=== PATIENT | male | born 1960 ===

== ENCOUNTER 2016-12-11 12:03 | Emergency (ER) | payer BC ==
[2016-12-11] MEDS ORDERED: cefTRIAXone 2 GM in Sodium Chloride 0.9% 100 ML IVPB STA (12:48)
[2016-12-11] MEDS ORDERED: Penicillin G Benzathine 2.4 Mill Unit/4 ml Syr IM ONE ×2 (13:04→13:48)
--- NOTE | 2016-12-11 13:08 | C.PDOC ---
History Of Present Illness A 56 y/o male presents to the ER c/o mildly painful sores on the penis since July this year. Pt notes back in July he was treated for syphilis but the sores did not resolve. Pt reports visiting the same doctor on 12/07 and blood work was done which showed a (+) syphilis test and was given Levaquin. Pt presents requesting for an "injection." Time Seen by Provider: 12/11/16 12:24 Chief Complaint (Nursing): Male Genitourinary History Per: Patient History/Exam Limitations: no limitations Onset/Duration Of Symptoms: Days (Since july) Current Symptoms Are (Timing): Still Present Severity: Mild Reports Recently: Treated By A Physician Recent travel outside of the [place]: No Additional History Per: Patient Past Medical History Reviewed: Historical Data, Nursing Documentation, Vital Signs Vital Signs: Last Vital Signs Temp 98.3 F 12/11/16 14:00 Pulse 62 12/11/16 14:00 Resp 20 12/11/16 14:00 BP 135/87 12/11/16 14:00 Pulse Ox 95 12/11/16 14:00 - Medical History PMH: Anxiety, Bipolar Disorder, HTN, Hyperlipidemia Family History: States: Unknown Family Hx - Social History Hx Alcohol Use: Yes Hx Substance Use: No Review Of Systems Except As Marked, All Systems Reviewed And Found Negative. Constitutional: Negative for: Fever, Chills Respiratory: Negative for: Shortness of Breath Gastrointestinal: Negative for: Nausea, Vomiting Genitourinary: Positive for: Penile Pain (Little pain), Other (Sores on the penis ). Negative for: Dysuria, Frequency, Hematuria Physical Exam - Physical Exam Appears: Non-toxic, No Acute Distress Skin: Warm, Dry Head: Atraumatic, Normacephalic Eye(s): bilateral: Normal Inspection Cardiovascular: Rhythm Regular, No Murmur Respiratory: Normal Breath Sounds, No Rales, No Rhonchi, No Wheezing Male Genital: No Testicular Tenderness, No Testicular Swelling, No Scrotal Swelling, Other (3 sub-cm ulceration to the shaft of the penis) Pulses: Left Femoral: Normal, Right Femoral: Normal Neurological/Psych: Oriented x3, Normal Speech, Normal Cognition, Other (No focal deficit) ED Course And Treatment O2 Sat by Pulse Oximetry: 96 (RA) Pulse Ox Interpretation: Normal Medical Decision Making Medical Decision Making: Disc w ID Dr Petit- initially rec admission for further eval but the pt does not wish to stay- he will sign out AMA. In this case she rec IM Stephani and azithro 500mg daily for 10 days. Disposition - Disposition Referrals: Kenneth To MD [Staff Provider] - Rossana Petit MD [Staff Provider] - Disposition: AGAINST MEDICAL ADVICE Disposition Time: 13:07 Condition: STABLE Additional Instructions: Please follow up with your doctor. Return to the ER for any worsening symptoms or for any other concerns. Prescriptions: Azithromycin [Zithromax] 500 mg PO DAILY #10 tab Forms: Gen Discharge Inst Yakut Print Language: FRENCH - Clinical Impression Clinical Impression: Lesion of penis - Scribe Statement The provider has reviewed the documentation as recorded by the Scribe Agnieszka issa All medical record entries made by the Scribe were at my direction and personally dictated by me. I have reviewed the chart and agree that the record accurately reflects my personal performance of the history, physical exam, medical decision making, and the department course for this patient. I have also personally directed, reviewed, and agree with the discharge instructions and disposition.
[2016-12-11 14:01] VITALS: BP 135/87; PULSE 62; RESP 20; TEMP 98.3
[2016-12-11 17:09] VITALS: O2SAT 96
== END 2016-12-11 14:04 | disposition left against medical advice (07) ==
LOC: C.ER 12:03
DX: N48.89 Other specified disorders of penis (principal)
CPT/HCPCS: 87491; 87591; 96372; 99284; J0561

== ENCOUNTER 2016-12-23 18:29 | Emergency (ER) | payer BC ==
[2016-12-23 18:40] VITALS: BP 157/94; PULSE 71; TEMP 97.6; O2SAT 97
[2016-12-23] MEDS ORDERED: Penicillin G Benzathine 2.4 Mill Unit/4 ml Syr IM ONE (18:41)
--- NOTE | 2016-12-23 19:11 | C.PDOC ---
History Of Present Illness 56 yo male w/Hx of Syphilis was sen to ED by ID for Stephani injection. At present time, pt denies any new active complaints. Ambulate to Ed for evaluation , not in any apparent distress. Time Seen by Provider: 12/23/16 18:38 Chief Complaint (Nursing): Medical Clearance History Per: Patient Past Medical History Reviewed: Historical Data, Nursing Documentation, Vital Signs Vital Signs: Last Vital Signs Temp 97.6 F 12/23/16 19:24 Pulse 71 12/23/16 19:24 Resp 18 12/23/16 19:24 BP 157/94 H 12/23/16 19:24 Pulse Ox 97 12/23/16 19:24 - Medical History PMH: Anxiety, Bipolar Disorder, HTN, Hyperlipidemia Other PMH: Syphilis Family History: States: Unknown Family Hx - Social History Hx Alcohol Use: Yes Hx Substance Use: No - Immunization History Hx Tetanus Toxoid Vaccination: No Hx Influenza Vaccination: No Hx Pneumococcal Vaccination: No Review Of Systems Except As Marked, All Systems Reviewed And Found Negative. Constitutional: Negative for: Fever, Chills ENT: Negative for: Throat Pain Cardiovascular: Negative for: Chest Pain, Palpitations Respiratory: Negative for: Cough, Shortness of Breath Gastrointestinal: Negative for: Nausea, Vomiting Genitourinary: Negative for: Dysuria Musculoskeletal: Negative for: Neck Pain, Back Pain Neurological: Negative for: Weakness, Numbness, Altered Mental Status, Headache , Dizziness Physical Exam - Physical Exam Appears: Well, Non-toxic, No Acute Distress Skin: Normal Color, Warm, No Rash Eye(s): bilateral: PERRL Throat: No Erythema, No Exudate, No Drooling Neck: Supple Cardiovascular: Rhythm Regular Respiratory: No Stridor, No Wheezing Gastrointestinal/Abdominal: Soft, No Tenderness, No Distention, No Guarding Back: No CVA Tenderness Male Genital: Other (refused) Extremity: No Pedal Edema, No Deformity Neurological/Psych: Oriented x3, Normal Speech ED Course And Treatment O2 Sat by Pulse Oximetry: 97 Progress Note: medication given to patient, tolerated well. Pt is afebrile, hemodynamicaly stable. non-toxic. Pt advised and ref. to F/u with ID for further eval and tx. Disposition Counseled Patient/Family Regarding: Diagnosis, Need For Followup - Disposition Referrals: Rossana Petit MD [Staff Provider] - Disposition: HOME/ ROUTINE Disposition Time: 19:11 Condition: STABLE Additional Instructions: Follow up with for further evaluation and treatment. Return to ED if any worsening or new changes. Instructions: Syphilis (ED) - Clinical Impression Clinical Impression: Syphilis
[2016-12-23 19:25] VITALS: RESP 18
== END 2016-12-23 19:24 | disposition home or self-care (01) ==
LOC: C.ER 18:29
DX: A53.9 Syphilis, unspecified (principal)

== ENCOUNTER 2018-01-29 14:14 | Emergency (ER) | payer BC ==
[2018-01-29 14:30] VITALS: BMI 29.5
[2018-01-29 14:34] VITALS: BP 148/79; PULSE 85; RESP 18; TEMP 98.2; O2SAT 97
[2018-01-29] MEDS ORDERED: Bacitracin 500 Units/gm Oint Foilpak UD ONE ×2 (14:50→14:53)
[2018-01-29] MEDS ORDERED: Bacitracin 500 Units/gm Oint Foilpak UD TOP ONE (14:52)
[2018-01-29] MEDS ORDERED: Tdap Vaccine 0.5 ml Vial (10-64 yrs) IM ONE ×2 (14:52→15:01)
--- NOTE | 2018-01-29 15:10 | C.PDOC ---
History Of Present Illness 57 year old male with a history of diabetes presents to the emergency department with complaints of bleeding to his left thumb. Patient reported that he was putting on a bag on a metal garbage can and scratched himself yesterday. Patient reports that the bleeding wouldn't stop so he bandaged it. Patient states he decided to come to the ED due to having work tomorrow and needing a proper bandage. He denies fever, chills, or other injury. Time Seen by Provider: 01/29/18 14:35 Chief Complaint (Nursing): Finger,Hand,&Wrist History Per: Patient History/Exam Limitations: no limitations Onset/Duration Of Symptoms: Days (1) Current Symptoms Are (Timing): Still Present Quality: Other (bleeding) Past Medical History Reviewed: Historical Data, Nursing Documentation, Vital Signs Vital Signs: Last Vital Signs Temp 98.2 F 01/29/18 14:30 Pulse 85 01/29/18 14:30 Resp 18 01/29/18 14:30 BP 148/79 01/29/18 14:30 Pulse Ox 97 01/29/18 15:12 - Medical History PMH: Anxiety, Bipolar Disorder, HTN, Hypercholesterolemia, Hyperlipidemia Surgical History: No Surg Hx Family History: States: No Known Family Hx - Social History Hx Alcohol Use: No Hx Substance Use: No - Immunization History Hx Tetanus Toxoid Vaccination: No Hx Influenza Vaccination: No Hx Pneumococcal Vaccination: No Review Of Systems Except As Marked, All Systems Reviewed And Found Negative. Constitutional: Negative for: Fever, Chills Skin: Positive for: Other (cut on tip of left thumb, bleeding) Physical Exam - Physical Exam Appears: Non-toxic, No Acute Distress Skin: Warm, Dry, Other (abrasions to the puncture wound to the tip of the left thumb, slightly deep and losing blood) Head: Atraumatic, Normacephalic Eye(s): bilateral: Normal Inspection Nose: Normal Neck: Normal, Supple Chest: Symmetrical Extremity: Normal ROM Neurological/Psych: Oriented x3, Normal Speech, Normal Cognition ED Course And Treatment O2 Sat by Pulse Oximetry: 97 (RA) Pulse Ox Interpretation: Normal Medical Decision Making Medical Decision Making: Plan: Adacel 0.5ml IM Bacitracin 2 ea TOP Keflex 1000mg PO Patient washed his hand, and his wound was cleaned and bandaged. Patient was instructed to keep the bandage on for 48 hours. Disposition Counseled Patient/Family Regarding: Diagnosis, Need For Followup - Disposition Referrals: eKvin To MD [Medical Doctor] - Disposition: HOME/ ROUTINE Disposition Time: 15:10 Condition: STABLE Prescriptions: Cephalexin [Keflex] 500 mg PO TID #40 capsule Instructions: Wound Care (DC) Forms: Gen Discharge Inst Brazilian, [facility] (Brazilian), Work Excuse - POA Present On Arrival: None - Clinical Impression Clinical Impression: Puncture wound of right thumb - Scribe Statement The provider has reviewed the documentation as recorded by the Scribe (Tom Marieqvi) Provider Attestation: All medical record entries made by the Scribe were at my direction and personally dictated by me. I have reviewed the chart and agree that the record accurately reflects my personal performance of the history, physical exam, medical decision making, and the department course for this patient. I have also personally directed, reviewed, and agree with the discharge instructions and disposition.
== END 2018-01-29 15:18 | disposition home or self-care (01) ==
LOC: C.ER 14:14
DX: S61.032A Puncture wound without foreign body of left thumb without damage to nail, initial encounter (principal); W22.8XXA Striking against or struck by other objects, initial encounter

== ENCOUNTER 2018-11-06 08:42 | Observation (INO) | payer BC ==
[2018-11-06 08:52] VITALS: BMI 30.2
--- NOTE | 2018-11-06 10:12 | RAD ---
Chest x-ray single frontal view History: Chest pain. Comparison: None available. Findings: Mild venous congestion. Heart size is within normal limits. Impression: Mild venous congestion.
--- NOTE | 2018-11-06 10:53 | C.PDOC ---
History Of Present Illness 58 year old male presents to the ED with complaint of right-sided chest pain for the past 6 hours. Patient describes the pain as pressure-like. Patient reports that he has never had a history of chest pain of cardiac issues in the past. Patient states that he took a baby aspirin this morning, but the pain continued so he came here. He denies fever cough, SOB, numbness, weakness, nausea, and vomiting. Time Seen by Provider: 11/06/18 09:18 Chief Complaint (Nursing): Chest Pain History Per: Patient History/Exam Limitations: no limitations Onset/Duration Of Symptoms: Hrs (6) Current Symptoms Are (Timing): Still Present Severity: Moderate Pain Scale Rating Of: 6 Quality: Pressure Associated Symptoms: denies: Nausea, Dyspnea Modifying Factors: None Exacerbating Factors: None Alleviating Factors: None Recent travel outside of the [place]: No Past Medical History Reviewed: Historical Data, Nursing Documentation, Vital Signs Vital Signs: Last Vital Signs Temp 98.7 F 11/06/18 08:52 Pulse 89 11/06/18 09:01 Resp 18 11/06/18 08:52 BP 156/92 H 11/06/18 09:01 Pulse Ox 95 11/06/18 08:52 - Medical History PMH: Anxiety, Bipolar Disorder, HTN, Hypercholesterolemia, Hyperlipidemia Surgical History: No Surg Hx Family History: States: Unknown Family Hx - Social History Hx Alcohol Use: No Hx Substance Use: No - Immunization History Hx Tetanus Toxoid Vaccination: No Hx Influenza Vaccination: No Hx Pneumococcal Vaccination: No Review Of Systems Constitutional: Negative for: Fever Eyes: Negative for: Pain ENT: Negative for: Ear Pain Cardiovascular: Positive for: Chest Pain (right-sided) Respiratory: Negative for: Cough, Shortness of Breath Gastrointestinal: Negative for: Nausea, Vomiting Genitourinary: Negative for: Dysuria, Frequency Musculoskeletal: Negative for: Neck Pain, Shoulder Pain, Arm Pain, Leg Pain Skin: Negative for: Lesions, Jaundice Neurological: Negative for: Weakness, Numbness Physical Exam - Physical Exam Appears: No Acute Distress, Other (obese male) Skin: Normal Color, Warm, Dry, No Rash Head: Atraumatic, Normacephalic Eye(s): bilateral: Normal Inspection Oral Mucosa: Moist Tongue: Normal Appearing Lips: Normal Appearing Neck: Normal ROM, Supple Chest: Symmetrical, No Deformity, No Tenderness Cardiovascular: Rhythm Regular, No Murmur Respiratory: No Accessory Muscle Use, No Rales, No Rhonchi, No Stridor, No Wheezing Gastrointestinal/Abdominal: Soft, No Tenderness Back: Normal Inspection, No CVA Tenderness Extremity: Normal ROM, No Calf Tenderness, Capillary Refill (<2 seconds), No Swelling Pulses: Left Dorsalis Pedis: Normal, Right Dorsalis Pedis: Normal Neurological/Psych: Oriented x3, Normal Speech, Normal Cognition, Normal Motor, Normal Sensation Gait: Steady ED Course And Treatment - Laboratory Results Result Diagrams: 11/06/18 10:49 11/06/18 10:49 ECG: Interpreted By Me, Viewed By Me ECG Rhythm: Sinus Rhythm ECG Interpretation: Normal Interpretation Of ECG: Normal axis. Normal ST/T waves. Rate From EC O2 Sat by Pulse Oximetry: 95 (on RA) Pulse Ox Interpretation: Normal - Other Rad CXR X-Ray: Interpreted by Me, Viewed By Me Interpretation: Impression: Mild venous congestion. Medical Decision Making Medical Decision Making: Plan: Labs ordered with CMP, CBC, and troponin EKG and CXR ordered for patient Patient given Aspirin Re-eval: Patient is resting, but still has chest pain. Call placed to Dr. Marielle Fuller for admission. Dr. Marielle Fuller agrees to admit patient. Dr. Dean placed for Cardio consult. Disposition - Disposition Disposition: HOSPITALIZED Disposition Time: 12:00 Condition: STABLE - POA Present On Arrival: None - Clinical Impression Clinical Impression: Chest pain - PA / DENTURE PACKER / Resident Statement MD/DO has reviewed & agrees with the documentation as recorded. (Torri Oconnell) - Scribe Statement The provider has reviewed the documentation as recorded by the Scribe (Torri Oconnell) All medical record entries made by the Scribe were at my direction and personally dictated by me. I have reviewed the chart and agree that the record accurately reflects my personal performance of the history, physical exam, medical decision making, and the department course for this patient. I have also personally directed, reviewed, and agree with the discharge instructions and d isposition.
[2018-11-06 10:57] LABS: BASO % 0.6 % (0.0-2.0); EOS # 0.1 K/uL (0.0-0.7); EOS % 1.2 % (0.0-4.0); HEMOGLOBIN 12.9 g/dL (12.0-18.0); LYMPH # 2.1 K/uL (1.0-4.3); LYMPH % 43.7 % (20.0-40.0); MEAN CELL VOLUME 86.5 fL (80.0-94.0); MEAN CORPUSCULAR HEMOGLOBIN 27.6 pg (27.0-31.0); MEAN CORPUSCULAR HGB CONC 31.9 g/dL (33.0-37.0); MONO # 0.5 K/uL (0.0-0.8); MONO % 9.9 % (0.0-10.0); NEUT # 2.1 K/uL (1.8-7.0); NEUT % 44.6 % (50.0-75.0); NRBC % 0.1 % (0.0-2.0); RBC 4.69 Mil/uL (4.40-5.90); RED CELL DISTRIBUTION WIDTH 16.6 % (11.5-14.5); WHITE BLOOD COUNT 4.8 K/uL (4.8-10.8)
[2018-11-06 11:03] LABS: INR 1.1; PROTHROMBIN TIME 11.9 SECONDS (9.7-12.2)
[2018-11-06 11:38] LABS: BLOOD UREA NITROGEN 17 mg/dL (9-20); CALCIUM 9.6 mg/dl (8.6-10.4); GFR NON-AFRICAN AMERICAN > 60
[2018-11-06 11:40] LABS: ALB/GLOB RATIO 1.4 (1.0-2.1); ALBUMIN 4.4 g/dL (3.5-5.0); ALT/SGPT 67 U/L (21-72); AST/SGOT 77 U/L (17-59)
[2018-11-06] MEDS ORDERED: Glucagon Recombinant 1 mg Inj IM PRN (13:32)
[2018-11-06] MEDS ORDERED: Dextrose 50% SYRINGE Inj (50 ml) IV PRN (13:32)
[2018-11-06 17:12] VITALS: RESP 20
--- NOTE | 2018-11-06 17:56 | US ---
Date of service: 11/06/2018 HISTORY: colic COMPARISON: None. TECHNIQUE: Sonographic evaluation of the right upper quadrant of the abdomen. FINDINGS: LIVER: Measures 22.9 cm in length. Patent portal and hepatic venous systems. Hepatopedal blood flow. Fatty infiltration manifest ultrasonographically as increased echogenicity of the liver parenchyma. No mass. No intrahepatic bile duct dilatation. GALLBLADDER: Cholelithiasis. Negative study for gallbladder wall thickening, pericholecystic fluid, sonographic Monroe's sign. COMMON BILE DUCT: Measures 5.6 mm. No stones. No dilatation. PANCREAS: Unremarkable as visualized. No mass. No ductal dilatation. RIGHT KIDNEY: Measures 0.8 x 12.7 cm in length. Normal echogenicity. No calculus, mass, or hydronephrosis. AORTA: No aneurysmal dilatation. IVC: Unremarkable. OTHER FINDINGS: None . IMPRESSION: Cholelithiasis. No sonographic evidence of acute cholecystitis. Hepatomegaly/hepatic steatosis.
[2018-11-06] MEDS ORDERED: METFORMIN HCL PO SCH (18:00)
[2018-11-06] MEDS ORDERED: GLYBURIDE PO SCH (18:00)
[2018-11-06] MEDS: (Novolog) Insulin Aspart, Recombinant 100 u/ml 10 ml vial SC SCH ×2 (18:45→22:24)
--- NOTE | 2018-11-06 19:10 | CP.PCM.HP ---
Past Patient History - Infectious Disease Hx of Infectious Diseases: None - Past Social History Smoking Status: Former Smoker - CARDIAC Hx Hypercholesterolemia: Yes Hx Hypertension: Yes - ENDOCRINE/METABOLIC Hx Endocrine Disorders: Yes Hx Diabetes Mellitus Type 2: Yes - PSYCHIATRIC Hx Anxiety: Yes Hx Bipolar Disorder: Yes Hx Substance Use: No - SURGICAL HISTORY Hx Surgeries: No - ANESTHESIA Hx Anesthesia: No Meds Allergies/Adverse Reactions: Allergies Allergy/AdvReac Type Severity Reaction Status Date / Time No Known Allergies Allergy Verified 11/06/18 08:51 Physical Exam - Constitutional Appears: Well - Head Exam Head Exam: ATRAUMATIC, NORMAL INSPECTION, NORMOCEPHALIC - Eye Exam Eye Exam: EOMI, Normal appearance, PERRL Pupil Exam: NORMAL ACCOMODATION, PERRL - ENT Exam ENT Exam: Mucous Membranes Moist, Normal Exam - Neck Exam Neck exam: Positive for: Normal Inspection - Respiratory Exam Respiratory Exam: Decreased Breath Sounds - Cardiovascular Exam Cardiovascular Exam: REGULAR RHYTHM, +S1, +S2 - GI/Abdominal Exam GI & Abdominal Exam: Diminished Bowel Sounds, Soft - Rectal Exam Rectal Exam: Deferred - Neurological Exam Neurological exam: Oriented x3 Results - Vital Signs Recent Vital Signs: Last Vital Signs Temp 98.0 F 11/06/18 15:25 Pulse 74 11/06/18 15:25 Resp 20 11/06/18 15:25 BP 143/85 11/06/18 15:25 Pulse Ox 95 11/06/18 15:25 - Labs Result Diagrams: 11/06/18 10:49 11/06/18 10:49 Labs: Laboratory Results - last 24 hr 11/06/18 11/06/18 11/06/18 10:49 10:49 10:49 WBC 4.8 RBC 4.69 Hgb 12.9 Hct 40.6 MCV 86.5 MCH 27.6 MCHC 31.9 L RDW 16.6 H Plt Count 209 MPV 10.0 Neut % (Auto) 44.6 L Lymph % (Auto) 43.7 H [place] % (Auto) 9.9 Eos % (Auto) 1.2 Baso % (Auto) 0.6 Neut # (Auto) 2.1 Lymph # (Auto) 2.1 [place] # (Auto) 0.5 Eos # (Auto) 0.1 Baso # (Auto) 0.0 PT 11.9 INR 1.1 APTT 31 D-Dimer, Quantitative Sodium 136 Potassium 4.7 Chloride 102 Carbon Dioxide 23 Anion Gap 17 BUN 17 Creatinine 0.6 L Est GFR ( Amer) > 60 Est GFR (Non-Af Amer) > 60 POC Glucose (mg/dL) Random Glucose 339 H Calcium 9.6 Total Bilirubin 0.5 AST 77 H ALT 67 Alkaline Phosphatase 131 H Troponin I < 0.0120 NT-Pro-B Natriuret Pep 16.0 Total Protein 7.4 Albumin 4.4 Globulin 3.1 Albumin/Globulin Ratio 1.4 11/06/18 11/06/18 11/06/18 16:33 16:33 16:45 WBC RBC Hgb Hct MCV MCH MCHC RDW Plt Count MPV Neut % (Auto) Lymph % (Auto) [place] % (Auto) Eos % (Auto) Baso % (Auto) Neut # (Auto) Lymph # (Auto) [place] # (Auto) Eos # (Auto) Baso # (Auto) PT INR APTT D-Dimer, Quantitative < 200 Sodium Potassium Chloride Carbon Dioxide Anion Gap BUN Creatinine Est GFR ( Amer) Est GFR (Non-Af Amer) POC Glucose (mg/dL) 158 H Random Glucose Calcium Total Bilirubin AST ALT Alkaline Phosphatase Troponin I < 0.0120 NT-Pro-B Natriuret Pep Total Protein Albumin Globulin Albumin/Globulin Ratio Assessment & Plan - Assessment and Plan (Free Text) Plan: gall stone and no simone of cholecystitis on usg gl bld.
[2018-11-06 20:48] LABS: BARBITURATES, UR NEGATIVE (NEGATIVE); BENZODIAZEPINES, UR POSITIVE (NEGATIVE); OPIATES, UR NEGATIVE (NEGATIVE); PHENCYCLIDINE, UR NEGATIVE (NEGATIVE)
--- NOTE | 2018-11-07 01:04 | CON ---
DATE: 11/06/2018 CARDIOLOGY CONSULT REASON FOR CONSULTATION: Right-sided chest pain. HISTORY OF PRESENT ILLNESS: The patient is a 58-year-old male who has history of diabetes mellitus. He is a former smoker. The patient presented here because of right-sided chest pain that lasted some 6 hours. The patient denies any associated nausea or vomiting. The patient is unaware of any prior cardiac history. The patient denies any associated diaphoresis, dizziness, or syncope. SOCIAL HISTORY: The patient is a former smoker. He is occasional drinker. MEDICATIONS: Crestor 20 mg once a day, aspirin 81 mg once a day, metformin 500 mg twice a day, hydrochlorothiazide 12.5 mg once a day, Toprol XL 50 mg once a day, Tricor 145 mg daily, Zestril 20 mg once a day. REVIEW OF SYSTEMS: No fever or chills. No dizziness or syncope. No diaphoresis. PHYSICAL EXAMINATION: GENERAL: The patient is a middle-aged male who does not appear to be in acute distress. VITAL SIGNS: Blood pressure 124/80, heart rate 78, temperature 98.5, respirations 16. HEENT: Normocephalic. CHEST: Clear. HEART: Sounds regular. ABDOMEN: Soft. EXTREMITIES: No edema. LABORATORY DATA: SMA-7, sodium 136, potassium 4.7, chloride of 102, CO2 of 23, glucose 339, BUN 17, creatinine 0.6. One set of troponin is negative. RPR done in 2017 was nonreactive. Today's PT/PTT and INR are within normal limits. Today's hemoglobin and hematocrit 12.9 and 40.6. White count and platelet count are within normal limits. EKG NSR, incomplete RBBB Chest x-ray was unremarkable. ASSESSMENT: 1. Chest pain, rule out myocardial infarction. 2. Uncontrolled diabetes mellitus. 3. Hypertension. The patient initial blood pressure was elevated at 165/94. RECOMMENDATIONS: Continue Crestor 20 mg once a day, aspirin 81 mg once a day, hydrochlorothiazide 12.5 mg once a day, Toprol XL 50 mg once a day, Tricor at 145 mg daily, Zestril 20 mg once a day. Obtain serum D-dimer, urine drug screen. Repeat 12-lead EKG. Obtain an echocardiography study and follow serial troponins. Nico Simms MD [facility]
[2018-11-07] MEDS: (Novolog) Insulin Aspart, Recombinant 100 u/ml 10 ml vial SC SCH ×4 (08:48→21:38)
[2018-11-07] MEDS ORDERED: HYDROCHLOROTHIAZIDE PO SCH (10:00)
[2018-11-07] MEDS ORDERED: FENOFIBRATE MICRONIZED 134 MG PO SCH (10:00)
[2018-11-07] MEDS ORDERED: LISINOPRIL PO SCH (10:00)
[2018-11-07] MEDS ORDERED: Metoprolol Succinate 50 mg XL Tab PO SCH (10:00)
--- NOTE | 2018-11-07 10:07 | CARD ---
APPROVED REPORT Date of service: 11/07/2018 EXAM: Two-dimensional and M-mode echocardiogram with Doppler and color Doppler. INDICATION Chest Pain RISK FACTORS Hypertension Hyperlipidemia Diabetes 2D DIMENSIONS IVSd1.3 (0.7-1.1cm)LVDd5.0 (3.9-5.9cm) PWd1.1 (0.7-1.1cm)LA [id number] (18-58mL) LVDs2.9 (2.5-4.0cm)FS (%) 42.0 % LVEF (%)72.7 (>50%)LVEF (Vill[place]ana's)68.55 % M-Mode DIMENSIONS Left Atrium (MM)4.30 (2.5-4.0cm)IVSd1.16 (0.7-1.1cm) Aortic Root4.11 (2.2-3.7cm)LVDd5.35 (4.0-5.6cm) Aortic Cusp Exc.2.50 (1.5-2.0cm)PWd1.10 (0.7-1.1cm) FS (%) 50 %LVDs2.66 (2.0-3.8cm) LVEF (%)81 (>50%) Mitral Valve MV E Ocddwpdi11.7cm/sMV A Bshfraeo95.3cm/sE/A ratio1.0 TDI Lateral E' Peak V8.74cm/sMedial E' Peak V5.84cm/sE/Lateral E'7.3 E/Medial E'10.9 Tricuspid Valve TR Peak [id number]/sTR Peak Gr.[id number] LEFT VENTRICLE The left ventricle is normal size. There is mild concentric left ventricular hypertrophy. The Ejection Fraction is 65-70%. There is normal LV segmental wall motion. The left ventricular diastolic function is normal. RIGHT VENTRICLE The right ventricle is normal size. The right ventricular systolic function is normal. ATRIA The left atrium is mildly dilated. The right atrium size is normal. The interatrial septum is intact with no evidence for an atrial septal defect. AORTIC VALVE The aortic valve is normal in structure. No aortic regurgitation is present. MITRAL VALVE The mitral valve is normal in structure. There is no mitral valve regurgitation noted. TRICUSPID VALVE The tricuspid valve is normal in structure. There is mild tricuspid regurgitation. Right ventricular systolic pressure is estimated at 27 mmHg. There is no pulmonary hypertension. PULMONIC VALVE The pulmonary valve is normal in structure. GREAT VESSELS The aortic root is normal in size. The IVC is normal in size and collapses >50% with inspiration. PERICARDIAL EFFUSION There is no pericardial effusion. <Conclusion> The left ventricle is normal size. There is mild concentric left ventricular hypertrophy. The Ejection Fraction is 65-70%. The left ventricular diastolic function is normal. The left atrium is mildly dilated. There is mild tricuspid regurgitation. Right ventricular systolic pressure is estimated at 27 mmHg. There is no pulmonary hypertension. The aortic root is normal in size. There is no pericardial effusion.
[2018-11-07] MEDS: Metoprolol Succinate 50 mg XL Tab PO SCH (10:16)
--- NOTE | 2018-11-07 17:38 | PN ---
DATE: 11/07/2018 SUBJECTIVE: The patient denies any chest pain, whether retrosternal or right-sided. PHYSICAL EXAMINATION: VITAL SIGNS: Blood pressure 154/92, heart rate is 75, temperature 97.8, respirations 20. HEENT: Normocephalic. CHEST: Clear. HEART: S1 and S2 regular. ABDOMEN: Soft. EXTREMITIES: No edema. LABORATORY DATA: Urine drug screen is negative except for benzodiazepines. Three sets of troponins are negative. Today's blood sugar is 224. Gallbladder ultrasound revealed cholelithiasis, no sonographic evidence of acute cholecystitis. Hepatomegaly/hepatic steatosis. ASSESSMENT: 1. Atypical chest pain. 2. Rule out underlying biliary colic. 3. Hepatic steatosis. 4. Uncontrolled diabetes mellitus. RECOMMENDATIONS: Continue Crestor 20 mg once a day, aspirin 81 mg once a day, heparin 5000 units subcutaneously every 12 hours, Toprol-XL 50 mg once a day, Zestril 20 mg once a day, TriCor at 145 mg daily. The echocardiographic study that was performed yesterday revealed normal ejection fraction, no pulmonary hypertension. The patient can be scheduled for Myoview stress test as an outpatient. Nico Simms MD
--- NOTE | 2018-11-07 18:50 | CP.PCM.PN ---
Subjective - Date & Time of Evaluation Date of Evaluation: 11/07/18 Time of Evaluation: 10:00 - Subjective Subjective: patient examined today denies nausea, vomiting, dizziness, fever, shortness of breath, diarrhea Objective - Vital Signs/Intake and Output Vital Signs (last 24 hours): Temp Pulse Resp BP Pulse Ox 97.5 F L 75 20 144/80 95 11/07/18 15:25 11/07/18 15:25 11/07/18 15:25 11/07/18 15:25 11/07/18 15:25 - Medications Medications: Current Medications Alprazolam (Xanax) 1 mg PO TID PRN PRN Reason: Anxiety Stop: 11/13/18 14:01 Aspirin (Ecotrin) 81 mg PO DAILY [facility] Last Admin: 11/07/18 10:12 Dose: 81 mg Dextrose (Dextrose 50% Inj) 0 ml IV STAT PRN; Protocol PRN Reason: Hypoglycemia Protocol Dextrose (Glutose 15) 0 gm PO ONCE PRN; Protocol PRN Reason: Hypoglycemia Protocol Fenofibrate (Tricor) 145 mg PO DAILY [facility] Last Admin: 11/07/18 10:12 Dose: 145 mg Glucagon (Glucagen Diagnostic Kit) 0 mg IM STAT PRN; Protocol PRN Reason: Hypoglycemia Protocol Glyburide (Micronase) 5 mg PO ACBD [facility] Last Admin: 11/07/18 17:46 Dose: 5 mg Heparin Sodium (Porcine) (Heparin) 5,000 units SC Q12 [facility] Last Admin: 11/07/18 10:12 Dose: 5,000 units Hydrochlorothiazide (Microzide) 12.5 mg PO DAILY [facility] Last Admin: 11/07/18 10:12 Dose: 12.5 mg Dextrose (Dextrose 5% In Water 1000 Ml) 1,000 mls @ 0 mls/hr IV .Q0M PRN; Protocol PRN Reason: Hypoglycemia Protocol Insulin Aspart (Novolog) 0 unit SC ACHS [facility]; Protocol Last Admin: 11/07/18 17:38 Dose: 3 units Lisinopril (Zestril) 20 mg PO DAILY [facility] Last Admin: 11/07/18 10:12 Dose: 20 mg Metformin HCl (Glucophage) 500 mg PO BIDCC [facility] Last Admin: 11/07/18 17:38 Dose: 500 mg Metoprolol Succinate (Toprol Xl) 50 mg PO DAILY [facility] Last Admin: 11/07/18 10:16 Dose: 50 mg Pneumococcal Polyvalent Vaccine (Pneumovax 23 Vaccine) 0.5 ml IM .ONCE ONE Stop: 11/08/18 10:01 Rosuvastatin Calcium (Crestor) 20 mg PO HS [facility] - Labs Labs: 11/06/18 10:49 11/06/18 10:49 PT 11.9 SECONDS (9.7-12.2) 11/06/18 10:49 INR 1.1 11/06/18 10:49 APTT 31 SECONDS (21-34) 11/06/18 10:49 - Constitutional Appears: Well - Head Exam Head Exam: ATRAUMATIC, NORMAL INSPECTION, NORMOCEPHALIC - Eye Exam Eye Exam: EOMI, Normal appearance, PERRL Pupil Exam: NORMAL ACCOMODATION, PERRL - ENT Exam ENT Exam: Mucous Membranes Moist, Normal Exam - Neck Exam Neck Exam: Full ROM, Normal Inspection. absent: Lymphadenopathy - Respiratory Exam Respiratory Exam: Decreased Breath Sounds - Cardiovascular Exam Cardiovascular Exam: REGULAR RHYTHM, +S1, +S2 - GI/Abdominal Exam GI & Abdominal Exam: Soft, Diminished Bowel Sounds - Rectal Exam Rectal Exam: Deferred - Neurological Exam Neurological Exam: Oriented x3 Assessment and Plan - Assessment and Plan (Free Text) Plan: labs reviewed vitals reviewed medications reviewed crestor dextrose 50%inj dextrose 5% in water ecotrin glucagen diagnostic kit glucophage glutose 15 heparin micronase microzide novolog toprol xl tricor xanax zestril
--- NOTE | 2018-11-07 20:40 | CARD ---
APPROVED REPORT Date of service: 11/06/2018 EKG Measurement Heart [id number] <Conclusion> Normal sinus rhythm Possible Left atrial enlargement Incomplete right bundle branch block Borderline ECG
--- NOTE | 2018-11-07 20:40 | CARD ---
APPROVED REPORT Date of service: 11/06/2018 EKG Measurement Heart [id number] <Conclusion> Normal sinus rhythm Normal ECG
[2018-11-08] MEDS: (Novolog) Insulin Aspart, Recombinant 100 u/ml 10 ml vial SC SCH ×3 (08:13→17:45)
[2018-11-08 08:36] VITALS: BP 147/76; TEMP 98.2; O2SAT 94
[2018-11-08] MEDS: Metoprolol Succinate 50 mg XL Tab PO SCH (09:31)
[2018-11-08] MEDS ORDERED: Pneumococcal 23-Valent Vaccine IM ONE (10:00)
[2018-11-08 11:35] VITALS: PULSE 79
--- NOTE | 2018-11-08 15:46 | CP.PCM.PN ---
Subjective - Date & Time of Evaluation Date of Evaluation: 11/08/18 Time of Evaluation: 15:47 - Subjective Subjective: Pt alert and oriented x3 with no complaints of Chest Pain or SOB. Objective - Vital Signs/Intake and Output Vital Signs (last 24 hours): Temp Pulse Resp BP Pulse Ox 98.2 F 79 20 147/76 94 L 11/08/18 08:35 11/08/18 11:32 11/08/18 08:35 11/08/18 08:35 11/08/18 08:35 - Medications Medications: Current Medications Alprazolam (Xanax) 1 mg PO TID PRN PRN Reason: Anxiety Stop: 11/13/18 14:01 Aspirin (Ecotrin) 81 mg PO DAILY [facility] Last Admin: 11/08/18 09:31 Dose: 81 mg Dextrose (Dextrose 50% Inj) 0 ml IV STAT PRN; Protocol PRN Reason: Hypoglycemia Protocol Dextrose (Glutose 15) 0 gm PO ONCE PRN; Protocol PRN Reason: Hypoglycemia Protocol Fenofibrate (Tricor) 145 mg PO DAILY [facility] Last Admin: 11/08/18 09:31 Dose: 145 mg Glucagon (Glucagen Diagnostic Kit) 0 mg IM STAT PRN; Protocol PRN Reason: Hypoglycemia Protocol Glyburide (Micronase) 5 mg PO ACBD [facility] Last Admin: 11/08/18 08:13 Dose: 5 mg Heparin Sodium (Porcine) (Heparin) 5,000 units SC Q12 [facility] Last Admin: 11/08/18 09:31 Dose: 5,000 units Hydrochlorothiazide (Microzide) 12.5 mg PO DAILY [facility] Last Admin: 11/08/18 09:31 Dose: 12.5 mg Dextrose (Dextrose 5% In Water 1000 Ml) 1,000 mls @ 0 mls/hr IV .Q0M PRN; Protocol PRN Reason: Hypoglycemia Protocol Insulin Aspart (Novolog) 0 unit SC ACHS [facility]; Protocol Last Admin: 11/08/18 12:43 Dose: 3 units Lisinopril (Zestril) 20 mg PO DAILY [facility] Last Admin: 11/08/18 09:31 Dose: 20 mg Metformin HCl (Glucophage) 500 mg PO BIDCC [facility] Last Admin: 11/08/18 08:17 Dose: 500 mg Metoprolol Succinate (Toprol Xl) 50 mg PO DAILY [facility] Last Admin: 11/08/18 09:31 Dose: 50 mg Rosuvastatin Calcium (Crestor) 20 mg PO HS [facility] Last Admin: 11/07/18 22:11 Dose: 20 mg - Labs Labs: 11/06/18 10:49 11/06/18 10:49 PT 11.9 SECONDS (9.7-12.2) 11/06/18 10:49 INR 1.1 11/06/18 10:49 APTT 31 SECONDS (21-34) 11/06/18 10:49 Assessment and Plan - Assessment and Plan (Free Text) Assessment: 58 year old male admitted for Chest Pain. Pt is alert oriented x3 ambulating with a steady gait. VS stable. Pt denies any complaints of any Chest Pain or SOB. Pt advised to f/u with PMD in 1 week and to f/u with a smoking pipes cleaner in 1-2 weeks to schedule for a stress test as outpatient. Pt will resume all home medications. Discharge discussed with Dr. Abraham Fuller.
--- NOTE | 2018-11-08 22:52 | CP.PCM.DIS ---
Provider - Provider Date of Admission: 11/06/18 12:36 Attending physician: Tiki Fuller MD Consults: 11/06/18 12:38 Physician Consult Stat Comment: Consulting Provider: Nico Simms Consulting Physician: Nico Simms Reason for Consult: chest pain, DM Time Spent in preparation of Discharge (in minutes): 10 Hospital Course - Lab Results Lab Results: Most Recent Lab Values WBC 4.8 K/uL (4.8-10.8) 11/06/18 10:49 RBC 4.69 Mil/uL (4.40-5.90) 11/06/18 10:49 Hgb 12.9 g/dL (12.0-18.0) 11/06/18 10:49 Hct 40.6 % (35.0-51.0) 11/06/18 10:49 MCV 86.5 fL (80.0-94.0) 11/06/18 10:49 MCH 27.6 pg (27.0-31.0) 11/06/18 10:49 MCHC 31.9 g/dL (33.0-37.0) L 11/06/18 10:49 RDW 16.6 % (11.5-14.5) H 11/06/18 10:49 Plt Count 209 K/uL (130-400) 11/06/18 10:49 MPV 10.0 fL (7.2-11.7) 11/06/18 10:49 Neut % (Auto) 44.6 % (50.0-75.0) L 11/06/18 10:49 Lymph % (Auto) 43.7 % (20.0-40.0) H 11/06/18 10:49 Gordon % (Auto) 9.9 % (0.0-10.0) 11/06/18 10:49 Eos % (Auto) 1.2 % (0.0-4.0) 11/06/18 10:49 Baso % (Auto) 0.6 % (0.0-2.0) 11/06/18 10:49 Neut # (Auto) 2.1 K/uL (1.8-7.0) 11/06/18 10:49 Lymph # (Auto) 2.1 K/uL (1.0-4.3) 11/06/18 10:49 Gordon # (Auto) 0.5 K/uL (0.0-0.8) 11/06/18 10:49 Eos # (Auto) 0.1 K/uL (0.0-0.7) 11/06/18 10:49 Baso # (Auto) 0.0 K/uL (0.0-0.2) 11/06/18 10:49 PT 11.9 SECONDS (9.7-12.2) 11/06/18 10:49 INR 1.1 11/06/18 10:49 APTT 31 SECONDS (21-34) 11/06/18 10:49 D-Dimer, Quantitative < 200 ng/mlDDU (0-243) 11/06/18 16:33 Sodium 136 mmol/L (132-148) 11/06/18 10:49 Potassium 4.7 mmol/L (3.6-5.2) 11/06/18 10:49 Chloride 102 mmol/L (98-107) 11/06/18 10:49 Carbon Dioxide 23 mmol/L (22-30) 11/06/18 10:49 Anion Gap 17 (10-20) 11/06/18 10:49 BUN 17 mg/dL (9-20) 11/06/18 10:49 Creatinine 0.6 mg/dL (0.8-1.5) L 11/06/18 10:49 Est GFR ( Amer) > 60 11/06/18 10:49 Est GFR (Non-Af Amer) > 60 11/06/18 10:49 POC Glucose (mg/dL) 302 mg/dL (65-110) H 11/08/18 17:26 Random Glucose 339 mg/dL (75-110) H 11/06/18 10:49 Hemoglobin A1c 10.4 % (4.2-6.5) H 11/07/18 11:25 Calcium 9.6 mg/dl (8.6-10.4) 11/06/18 10:49 Total Bilirubin 0.5 mg/dL (0.2-1.3) 11/06/18 10:49 AST 77 U/L (17-59) H 11/06/18 10:49 ALT 67 U/L (21-72) 11/06/18 10:49 Alkaline Phosphatase 131 U/L (38-126) H 11/06/18 10:49 Troponin I < 0.0120 ng/mL (0.00-0.120) 11/06/18 23:30 NT-Pro-B Natriuret Pep 16.0 pg/mL (0-900) 11/06/18 10:49 Total Protein 7.4 g/dL (6.3-8.3) 11/06/18 10:49 Albumin 4.4 g/dL (3.5-5.0) 11/06/18 10:49 Globulin 3.1 gm/dL (2.2-3.9) 11/06/18 10:49 Albumin/Globulin Ratio 1.4 (1.0-2.1) 11/06/18 10:49 Urine Opiates Screen Negative (NEGATIVE) 11/06/18 20:00 Urine Methadone Screen Negative (NEGATIVE) 11/06/18 20:00 Ur Barbiturates Screen Negative (NEGATIVE) 11/06/18 20:00 Ur Phencyclidine Scrn Negative (NEGATIVE) 11/06/18 20:00 Ur Amphetamines Screen Negative (NEGATIVE) 11/06/18 20:00 U Benzodiazepines Scrn Positive (NEGATIVE) 11/06/18 20:00 U Oth Cocaine Metabols Negative (NEGATIVE) 11/06/18 20:00 U Cannabinoids Screen Negative (NEGATIVE) 11/06/18 20:00 - Hospital Course Hospital Course: Patient wants to go home discussed with Dr. Shetty he prefers to do the stress test tomorrow but patient can be discharged as per Dr. Avendaño to get the stress test done as an outpatient by the PMD Dr. To spoke to the patient patient advised to take the medications eventually patient's discharge Discharge Exam - Head Exam Head Exam: ATRAUMATIC, NORMAL INSPECTION, NORMOCEPHALIC - Eye Exam Eye Exam: EOMI, Normal appearance, PERRL Pupil Exam: NORMAL ACCOMODATION, PERRL - ENT Exam ENT Exam: Normal Exam - Neck Exam Neck exam: Full Rom - Respiratory Exam Respiratory Exam: Decreased Breath Sounds - Cardiovascular Exam Cardiovascular Exam: REGULAR RHYTHM, +S1, +S2 - GI/Abdominal Exam GI & Abdominal Exam: Diminished Bowel Sounds, Distended - Rectal Exam Rectal Exam: Deferred - Neurological Exam Neurological exam: Oriented x3 Discharge Plan - Follow Up Plan Condition: STABLE Disposition: HOME/ ROUTINE Instructions: Heart Healthy Diet, Chest Pain (DC) Additional Instructions: Follow up in 1 week with PMD stress test to be scheduled as outpatient pt to resume all home medications Seguimiento en 1 semana con PMD. prueba de esfuerzo para ser programado gladis ambulatorio pt para reanudar todos los medicamentos caseros Referrals: Kai Fuller MD [Staff Provider] -
--- NOTE | 2018-11-09 01:37 | PN ---
DATE: 11/08/2018 SUBJECTIVE: The patient denies any chest pain. No reported ventricular arrhythmia. The patient denied any nausea or vomiting. PHYSICAL EXAMINATION: VITAL SIGNS: Blood pressure 147/76, heart rate 85, temperature 98.2, respirations 20. HEENT: Normocephalic. CHEST: Clear. HEART: S1 and S2, regular. ABDOMEN: Soft. EXTREMITIES: No edema. LABORATORY DATA: Today's blood sugars 218, 203 and 262. ASSESSMENT: 1. Atypical chest pain, myocardial infarction is ruled out. 2. Cholelithiasis. 3. Uncontrolled diabetes mellitus. 4. Hepatic steatosis. RECOMMENDATIONS: Continue current Crestor 20 mg once a day, aspirin 81 mg once a day, Glucophage 500 mg twice a day, subcutaneous heparin 5000 units every 12 hours, hydrochlorothiazide 12.5 mg daily, Toprol-XL 50 mg once a day, TriCor 145 mg once a day, and Zestril 20 mg once a day. The patient can be scheduled for Myoview stress test as an outpatient. Nico Simms MD
== END 2018-11-08 18:09 | disposition home or self-care (01) ==
LOC: C.ER 08:42 → C.9E 12:36 → C.6T 12:51 → C.9E 12:57 → C.6T 13:01
PROVIDERS: ADMIT Internal Medicine Nephrology; ATTEND Internal Medicine Nephrology
DX: R07.89 Other chest pain (principal); I10 Essential (primary) hypertension; F31.9 Bipolar disorder, unspecified; E78.5 Hyperlipidemia, unspecified; E11.65 Type 2 diabetes mellitus with hyperglycemia; Z87.891 Personal history of nicotine dependence
CPT/HCPCS: 36415; 71045; 76705; 80053; 82948; 83036; 83880; 84484; 85025; 85378; 85610; 85730; 93005; 93306; 99285; G0378; G0480; J1644